=== PATIENT | female | born 1955 | race American Indian/Alaskan Native ===

== ENCOUNTER 2017-04-14 11:10 | Day surgery (SDC) | payer MEDICARE ==
[2017-04-14] MEDS ORDERED: NACL 0.9% 500 ML 0 ML ONE (12:27)
[2017-04-14] MEDS ORDERED: VERSED IV ONE ×2 (12:28→14:00)
[2017-04-14] MEDS ORDERED: SUBLIMAZE ONE (12:28)
[2017-04-14] MEDS ORDERED: HURRICAINE ONE 20% TOPICAL SPRAY MM ×2 (12:34→12:54)
[2017-04-14] MEDS ORDERED: HURRICAINE ONE 20% TOPICAL SPRAY MM NR (12:50)
--- NOTE | 2017-04-14 13:11 | Short Stay Summary ---
Short Stay Documentation Date of service: 04/14/17 - History H&P: obtained from office - Allergies and Medications Current Medications: Allergies iodine Allergy (Unverified 04/14/17 11:11) Swelling shellfish derived Allergy (Unverified 04/14/17 11:11) Swelling Home Medications Medication Instructions Recorded Confirmed Last Taken Type Benazepril HCl [Benazepril HCl] 20 mg PO DAILY 04/14/17 04/14/17 04/13/17 History Insulin Detemir [Levemir Flextouch] 50 units SC QHS 04/14/17 04/14/17 04/13/17 History amLODIPine [Norvasc] 10 mg PO DAILY 04/14/17 04/14/17 04/13/17 History - Physical exam General appearance: no acute distress Integumentary: no rash HEENT: Atraumatic Lungs: Clear to auscultation Breasts: deferred Heart: Regular rate Gastrointestinal: normal Female Genitourinary: deferred Rectal Exam: deferred Extremities: no ischemia Neurological: Normal gait - Brief post op/procedure progress note Date of procedure: 04/14/17 Pre-op diagnosis: Abnormal TTE Post-op diagnosis: same Procedure: GEETHA Anesthesia: MAC Findings: See report Surgeon: BALDO AUSTIN Estimated blood loss: none Pathology: none Condition: stable - Hospital course Hospital course: Uneventful - Disposition Condition at discharge: Good Disposition: DC-01 TO HOME OR SELFCARE Short Stay Discharge Plan Activity: advance as tolerated Weight Bearing Status: Weight Bear as Tolerated Diet: low fat, low cholesterol, low salt Follow up with: MC OLIVAREZ MD [Primary Care Provider] - 7 Days
[2017-04-14] MEDS ORDERED: SUBLIMAZE IV ONE (14:00)
[2017-04-14 14:59] VITALS: BP 176/90
== END 2017-04-14 15:45 | disposition home or self-care (01) ==
LOC: CATHLABREC 11:10
PROVIDERS: ATTEND Internal Medicine
DX: R94.31 Abnormal electrocardiogram [ECG] [EKG] (principal); I10 Essential (primary) hypertension; E11.9 Type 2 diabetes mellitus without complications; E78.00 Pure hypercholesterolemia, unspecified; M19.90 Unspecified osteoarthritis, unspecified site; Z90.710 Acquired absence of both cervix and uterus; Z98.890 Other specified postprocedural states; Z91.013 Allergy to seafood; Z91.041 Radiographic dye allergy status; Z79.4 Long term (current) use of insulin; Z79.899 Other long term (current) drug therapy
CPT/HCPCS: 93312; 93325; J2250; J3010; 93320; J7040